=== PATIENT | female | born 1955 | race Caucasian/White ===

== ENCOUNTER 2020-01-30 08:30 | Outpatient (RCR) | payer MEDICARE, MEDICAID, SELFPAY ==
[2019-12-21 09:39] VITALS: PULSE 63
--- NOTE | 2019-12-26 14:05 | PCCPR ---
Absent due to weather [facility] called after her session today states with the weather predications she will not be in tomorrow 12/27/2019.
--- NOTE | 2019-12-31 07:58 | PCCPR ---
Absent-elevated blood sugar and did not have a ride today (they sent the wrong vehicle.) Will be absent the rest of the week for MD appts. Plans to return Tuesday.
--- NOTE | 2020-01-14 08:54 | PCCPR ---
Absent-r/t ride issues.
--- NOTE | 2020-01-16 07:41 | PCCPR ---
Absent-ride issues
--- NOTE | 2020-01-17 08:09 | PCCPR ---
[facility] called today, unable to come to rehab because she does not have a transportation.
[2020-01-28 08:49] LABS: Glucose Point of Care 145 (65-105)
[2020-01-28 09:34] LABS: Glucose Point of Care 111 (65-105)
== END 2020-02-01 14:55 | disposition home or self-care (01) ==
LOC: ANHCPREHAB 08:30
PROVIDERS: PCP Internal Medicine; Visit Provider Internal Medicine Cardiovascular Disease
DX: I50.89 Other heart failure (principal)
CPT/HCPCS: 93798

== ENCOUNTER 2020-06-25 13:52 | Outpatient (CLI) | payer MEDICARE, MEDICAID, SELFPAY ==
--- NOTE | ~2020-06-25 | US_ITS ---
EXAMINATION: US art doppler w press LE BI DATE: 06/25/2020 14:45 INDICATION: Peripheral arterial occlusive disease. TECHNIQUE: Segmental pressures and plethysmographic and Doppler waveforms of the brachial and lower e xtremity arteries were obtained. COMPARISON: None. FINDINGS: Right brachial artery pressure of 137 mm Hg at the left brachial artery pressure was not obtained. Th e right and left high-thigh pressure indices were unable to be obtained due to patient body habitus. The right ankle-brachial index (AUREA) is 1.00 (normal >= 0.9-1). The right great toe-brachial index (T BI) is 0.88 (normal >= 0.6-0.8). Arterial waveforms are biphasic with brisk systolic upstrokes throug hout. The left AUREA is 1.03. The left TBI is 0.68. Arterial waveforms are biphasic with brisk systolic upstr okes throughout. IMPRESSION: 1. Normal lateral ABIs and TBIs. No significant occlusive disease. Reviewed, dictated and finalized at location A.
== END 2020-06-25 13:53 | disposition home or self-care (01) ==
PROVIDERS: PCP Internal Medicine; Visit Provider Internal Medicine Cardiovascular Disease
DX: I73.9 Peripheral vascular disease, unspecified (principal)
CPT/HCPCS: 93923